=== PATIENT | female | born 1960 | race Caucasian/White ===

== ENCOUNTER → 2016-06-22 | Outpatient (CLI) | payer MEDICAID ==
[~2016-06-22] MED LIST: 1-ME1LIQ PO; ATOR80TA PO; CEPH500C3 PO; FLON0.053; FURO1TAB93 PO; GABA800T PO; GEOD80CA PO; HYDR-3535 PO; HYDR10TA23 PO; LORA10TA PO; LORC10TA PO; METO50CR PO; NITR.4 SL; POTA595T2 PO; PRIL40CA PO; SPIR50TA21 PO; SYMB80AE INH; TRAD5TAB PO; TRAZ50TA4 PO; VENTAER INH; XANA1TAB6 PO
[2016-06-22 10:06] LABS: BLOOD GAS BASE EXCESS -0.5 mmol/L (-2-2); BLOOD GAS CARBOXYHEMOGLOBIN 8.7 % (0-4); BLOOD GAS HCO3 23 mmol/L (22-26); BLOOD GAS METHEMOGLOBIN 1.4 % (0-2); BLOOD GAS O2 HGB SATURATION 84 % (90-100); BLOOD GAS OXYGEN CONTENT 18.6 Vol % (12.0-20.0); BLOOD GAS PCO2 36 mmHg (38-42); BLOOD GAS PO2 67 mmHg (61-120); BLOOD GAS TOTAL HGB 15.8 G/DL (12.0-16.0); TEMP CORR TO 98.6
[2016-06-22 10:07] LABS: CRITICAL VALUE YES; DRAW SITE RT RADIAL; FIO2 21 %; NUMBER OF ARTERIAL PUNCTURES 1; STAT NO; ULNAR PULSE PRESENT
--- NOTE | 2016-06-22 11:13 | RADRPT ---
EXAM DATE/TIME: 06/22/2016 10:45 [facility] COMPARISON: No previous studies available for comparison. INDICATIONS: Short of breath. MEDICAL HISTORY: Chronic obstructive pulmonary disease. SURGICAL HISTORY: None. ENCOUNTER: Initial ACUITY: >1 year PAIN SCORE: 0/10 LOCATION: Bilateral chest FINDINGS: The heart and mediastinal structures are normal. The pulmonary vascular pattern is also normal. Mil d increased interstitial markings are noted bilaterally. Degenerative changes and scoliosis of the t horacolumbar spine are noted. CONCLUSION: 1. Mild increased interstitial markings bilaterally consistent with acute or chronic interstitial d isease. Clinical correlation is recommended. 2. Degenerative changes and scoliosis of the thoracolumbar spine. Devan Aguirre MD on June 22, 2016 at 10:54 Board Certified Radiologist. This report was verified electronically.
--- NOTE | 2016-06-27 10:33 | RSPPFT ---
DATE OF PROCEDURE: 06/22/16 COMMENTS: Spirometry with FEV1 of 1.5, FVC of 1.9, FEV1/FVC ratio at 78%. A positive response to acutely inhaled bronchodilator noted. TLC is 93% of predicted. Diffusion capacity is normal. Room air arterial blood gases show pH of 7.43, PCO2 of 36, PO2 of 67. IMPRESSION: 1. No evidence of airways obstruction or restriction. 2. Mild room air hypoxemia.
== END ==
LOC: HRSP 09:07
PROVIDERS: ATTEND Internal Medicine Sleep Medicine
DX: R06.89 Other abnormalities of breathing (principal)
CPT/HCPCS: 36600; 71020; 82805; 94060; 94726; 94729

== ENCOUNTER 2017-08-27 11:47 | Emergency (ER) | payer OTHER, MEDICAID ==
[~2017-08-27] VITALS: Ht 157.5 cm; Wt 117.2 kg
[2017-08-27 12:03] VITALS: BP 148/81; PULSE 82; RESP 16; TEMP 98.9; O2SAT 84
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
[2017-08-27 12:30] VITALS: O2SAT 85
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
[2017-08-27 12:42] LABS: BASOPHIL # 0.1 TH/MM3 (0-0.2); EOSINOPHIL # 0.2 TH/MM3 (0-0.4); EOSINOPHIL % 1.9 % (0.0-4.0); HEMATOCRIT 39.3 % (35.0-46.0); HEMOGLOBIN 13.4 GM/DL (11.6-15.3); LYMPH % 18.6 % (9.0-44.0); LYMPHOCYTE # 1.9 TH/MM3 (1.0-4.8); MEAN CELL VOLUME 95.8 FL (80.0-100.0); MEAN CORPUSCULAR HEMOGLOBIN 32.6 PG (27.0-34.0); MEAN PLATELET VOLUME 7.6 FL (7.0-11.0); MONO % 8.1 % (0.0-8.0); MONOCYTE # 0.8 TH/MM3 (0-0.9); NEUT % 70.4 % (16.0-70.0); PLATELET COUNT 256 TH/MM3 (150-450); RED CELL DISTRIBUTION WIDTH 12.5 % (11.6-17.2)
[2017-08-27 12:54] LABS: CHLORIDE 91 MEQ/L (98-107); SODIUM (NA) 127 MEQ/L (136-145)
[2017-08-27 12:58] LABS: ALBUMIN 3.3 GM/DL (3.4-5.0); BICARBONATE 28.4 MEQ/L (21.0-32.0); BLOOD UREA NITROGEN 8 MG/DL (7-18); CALCIUM 7.8 MG/DL (8.5-10.1); GLUCOSE,RANDOM 113 MG/DL (74-106)
[2017-08-27] MEDS ORDERED: OXYC1TAB36 PO (13:00)
[2017-08-27] MEDS ORDERED: GABA800T PO (13:00)
[2017-08-27] MEDS ORDERED: CLAR10CA3 PO (13:00)
[2017-08-27] MEDS ORDERED: VENTAER INH (13:00)
[2017-08-27] MEDS ORDERED: ATOR80TA45 PO (13:00)
[2017-08-27] MEDS ORDERED: FURO1TAB60 PO (13:00)
[2017-08-27] MEDS ORDERED: POTA595T PO (13:00)
[2017-08-27] MEDS ORDERED: XANA1TAB2 PO (13:00)
[2017-08-27] MEDS ORDERED: GEOD80CA PO (13:00)
[2017-08-27] MEDS ORDERED: OMEP40CA2 PO (13:00)
[2017-08-27 13:01] LABS: ALT (GPT) 60 U/L (10-53); AST (GOT) 74 U/L (15-37); CREATININE 0.72 MG/DL (0.50-1.00); GLOMERULAR FILTRATION RATE 84 ML/MIN (>89); PROTHROMBIN TIME - PATIENT 10.5 SEC (9.8-11.6)
[2017-08-27 13:03] VITALS: BP 144/70; PULSE 73; RESP 22; O2SAT 93
[2017-08-27 13:03] LABS: TOTAL BILIRUBIN ADULT 0.6 MG/DL (0.2-1.0); TOTAL PROTEIN 7.3 GM/DL (6.4-8.2)
[2017-08-27 13:04] LABS: ALKALINE PHOSPHATASE 117 U/L (45-117)
[2017-08-27 13:06] LABS: TROPONIN I LESS THAN 0.02 NG/ML (0.02-0.05)
[2017-08-27] MEDS ORDERED: IOHEXOL 350 MG/ML 10 ML VIAL (for RAD DIAG) IVCONTRAST ONE (13:57)
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
[2017-08-27] MEDS ORDERED: SODIUM CHLORID 0.9% 500 ML INJ 500 ML IV ONE (14:45)
[2017-08-27 14:54] VITALS: BP 171/60; PULSE 71; RESP 20; O2SAT 92
[2017-08-27] MEDS ORDERED: KETOROLAC TROMETHAMINE 30 MG/ML (IVP) VIAL IV PUSH ONE (15:00)
--- NOTE | 2017-08-28 11:51 | EKG ---
Date Performed: 08/27/2017 Time Performed: 12:41:03 PTAGE: 57 years EKG: Sinus rhythm NORMAL ECG PREVIOUS TRACING : 11/13/2006 21.01 Since the previous tracing, no significant change noted DOCTOR: Ade Whitman Interpretating Date/Time 08/28/2017 11:50:02
== END 2017-08-27 15:13 | disposition home or self-care (01) ==
LOC: PHED 11:47
DX: S27.321A Contusion of lung, unilateral, initial encounter (principal); S16.1XXA Strain of muscle, fascia and tendon at neck level, initial encounter; S80.02XA Contusion of left knee, initial encounter; R09.02 Hypoxemia; V89.0XXA Person injured in unspecified motor-vehicle accident, nontraffic, initial encounter; Y92.410 Unspecified street and highway as the place of occurrence of the external cause; J44.9 Chronic obstructive pulmonary disease, unspecified; M19.90 Unspecified osteoarthritis, unspecified site; F31.9 Bipolar disorder, unspecified; I10 Essential (primary) hypertension; E78.00 Pure hypercholesterolemia, unspecified; I50.9 Heart failure, unspecified; E11.9 Type 2 diabetes mellitus without complications; M79.7 Fibromyalgia; F17.210 Nicotine dependence, cigarettes, uncomplicated
CPT/HCPCS: 71045; 71260; 72125; 80053; 82550; 83880; 84484; 85025; 85610; 85730; 93005; 96374; 99285; J1885; Q9967

== ENCOUNTER 2017-09-03 11:25 | Emergency (ER) | payer MEDICAID, OTHER ==
[~2017-09-03] VITALS: Ht 157.5 cm; Wt 114.0 kg
[~2017-09-03 11:25] MED LIST changes: -1-ME1LIQ PO; -ATOR80TA PO; +ATOR80TA45 PO; -CEPH500C3 PO; +CLAR10CA3 PO; -FLON0.053; +FURO1TAB60 PO; -FURO1TAB93 PO; -HYDR-3535 PO; -HYDR10TA23 PO; -LORA10TA PO; -LORC10TA PO; -METO50CR PO; -NITR.4 SL; +OMEP40CA2 PO; +OXYC1TAB36 PO; +POTA595T PO; -POTA595T2 PO; -PRIL40CA PO; -SPIR50TA21 PO; -SYMB80AE INH; -TRAD5TAB PO; -TRAZ50TA4 PO; +XANA1TAB2 PO; -XANA1TAB6 PO
[2017-09-03 11:32] VITALS: BP 171/72; PULSE 89; RESP 16; TEMP 98.5; O2SAT 94
[2017-09-03] MEDS ORDERED: ZOLO100T PO (12:37)
[2017-09-03] MEDS ORDERED: RISP.25 PO (12:37)
[2017-09-03] MEDS ORDERED: ISOS20TA PO (12:37)
[2017-09-03] MEDS ORDERED: ANAS1TAB PO (12:37)
[2017-09-03] MEDS ORDERED: LEVO25TA4 PO (12:37)
[2017-09-03] MEDS ORDERED: CELE200C PO (12:37)
[2017-09-03] MEDS ORDERED: LEVA500T33 PO (13:28)
[2017-09-03] MEDS ORDERED: PRED20 PO (13:28)
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
== END 2017-09-03 13:49 | disposition home or self-care (01) ==
LOC: PHED 11:25 → PHEFT 13:49
DX: J40 Bronchitis, not specified as acute or chronic (principal); M54.2 Cervicalgia; F31.9 Bipolar disorder, unspecified; I11.0 Hypertensive heart disease with heart failure; I50.9 Heart failure, unspecified; E11.9 Type 2 diabetes mellitus without complications; J44.9 Chronic obstructive pulmonary disease, unspecified; K21.9 Gastro-esophageal reflux disease without esophagitis; F17.200 Nicotine dependence, unspecified, uncomplicated
CPT/HCPCS: 99283

== ENCOUNTER → 2017-11-23 | Outpatient (CLI) | payer MEDICAID ==
[~2017-11-23] MED LIST changes: +ANAS1TAB PO; +CELE200C PO; -CLAR10CA3 PO; +ISOS20TA PO; +LEVA500T33 PO; +LEVO25TA4 PO; +PRED20 PO; +RISP.25 PO; -VENTAER INH; +ZOLO100T PO
--- NOTE | 2017-11-23 13:35 | EKG ---
Date Performed: 11/23/2017 Time Performed: 13:15:00 PTAGE: 57 years EKG: Sinus rhythm . Possible anteroseptal infarct - age undetermined Low QRS voltages in precordial leads Abnormal ECG PREVIOUS TRACING : 08/27/2017 12.41 Compared to previous tracing, possible anteroseptal infarct pattern is now more prominent. DOCTOR: Cody Conteh Interpretating Date/Time 11/23/2017 13:34:30
== END ==
LOC: HCAV 12:57
PROVIDERS: ATTEND General Practice
DX: Z01.818 Encounter for other preprocedural examination (principal); I42.9 Cardiomyopathy, unspecified
CPT/HCPCS: 93005